=== PATIENT | female | born 1930 | race African-American/Black ===

== ENCOUNTER → 2017-08-09 | Outpatient (CLI) | payer MEDICARE, BC ==
[~2017-08-09] MED LIST: ASPIRIN 32325 MG/TA1 PO; ASPIRIN E.C. 8181 MG PO; ATACAND32 MG PO; CALCIUM600 M2 PO; COMBIRESP IH; COZAAR100 MG PO; FOSAMAX10 MG PO; NORCO 325 MG-51 TAB PO; PLENDIL10 MG PO; PREDNISONE20 MG PO; PROAIR HFA0.09 MG/AC IH; SINEMET 25/101 UDTAB PO; VITAMIN D1000 IU PO; VITAMIN E1000 U/CAP PO
== END ==
LOC: COL.VAS 09:53
DX: I08.8 Other rheumatic multiple valve diseases (principal)

== ENCOUNTER → 2018-03-03 | Outpatient (CLI) | payer MEDICARE, BC ==
[~2018-03-03] MED LIST changes: +CENTRUM SILVER1 CTB PO; +COZAAR 50MG50 MG/TAB PO; +FERROUS SU325 MG/TAB PO; +IMDUR 30MG30 MG/TAB PO; +K-TAB20 PO; +LASIX 20MG TABL20 MG PO; +NAMENDA 10MG TA10 MG PO; +PLAVIX 75MG TAB75 MG PO; +PREDNISONE10 MG PO; +PROLIA60 MG/ML SQ; +TOPROL XL 25MG25 MG PO; +ZITHROMAX500 M2 PO
[2018-03-03 15:03] LABS: HEMOGLOBIN 11.2 g/dl (12.5-16.0); MEAN CELL VOLUME 97 fl (80.0-100.0); MEAN CORPUSCULAR HEMOGLOBIN 30 pg (27.0-31.0); MEAN CORPUSCULAR HGB CONC 31 g/dl (33.0-37.0); MEAN PLATELET VOLUME 9.5 fl (7.4-10.4); PLATELET COUNT 189 K/mm3 (130-400); RED BLOOD COUNT 3.69 M/mm3 (4.10-5.30); REDCELL DISTRIBUTION WIDTH-CV 12.3 % (11.5-14.5)
[2018-03-03 15:10] LABS: HEMATOCRIT 35.7 % (37.0-47.0)
[2018-03-03 15:11] LABS: CALCIUM 9.6 mg/dL (8.4-10.2); CREATININE, serum 0.66 mg/dL (0.52-1.25); POTASSIUM 3.7 mmol/L (3.4-5.0)
== END ==
LOC: COL.LAB 14:22
PROVIDERS: Physician Assistant
DX: E87.6 Hypokalemia (principal); K92.2 Gastrointestinal hemorrhage, unspecified; D64.9 Anemia, unspecified

== ENCOUNTER 2018-03-10 15:04 | Inpatient (IN) | payer MEDICARE, BC ==
[~2018-03-10] VITALS: Ht 157.5 cm; Wt 43.5 kg
[2018-03-10 15:48] LABS: BASO % 0.3 % (0.0-2.0); EOS # 0.1 (0.0-0.7); EOS % 1.3 % (0-4.0); GRAN # 4.7 (1.4-6.5); HEMOGLOBIN 10.4 g/dl (12.5-16.0); LYMPH # 0.6 (1.2-3.4); LYMPH % 10.2 % (20.0-51.0); MEAN CELL VOLUME 97 fl (80.0-100.0); MEAN CORPUSCULAR HEMOGLOBIN 30 pg (27.0-31.0); MEAN CORPUSCULAR HGB CONC 31 g/dl (33.0-37.0); MONO # 0.5 (0.1-0.6); PLATELET COUNT 214 K/mm3 (130-400); RED BLOOD COUNT 3.45 M/mm3 (4.10-5.30); REDCELL DISTRIBUTION WIDTH-CV 11.9 % (11.5-14.5)
[2018-03-10 15:52] LABS: HEMATOCRIT 33.4 % (37.0-47.0)
[2018-03-10 15:53] LABS: ALANINE AMINOTRANSFERASE 19 U/L (9-52); ALBUMIN 3.4 gm/dL (3.5-5.0); ALKALINE PHOSPHATASE 70 U/L (50-136); ANION GAP 8 mmol/L (7-16); AST,SGOT 21 U/L (15-37); BILIRUBIN,TOTAL 0.4 mg/dL (0.0-1.0); BLOOD UREA NITROGEN 11 mg/dL (7-17); CALCIUM 8.4 mg/dL (8.4-10.2); CARBON DIOXIDE 37 mmol/L (22-30); CHLORIDE 97 mmol/L (98-107); CREATININE, serum 0.52 mg/dL (0.52-1.25); GLUCOSE 114 mg/dL (74-106); LIPASE 44 U/L (23-300); POTASSIUM 3.9 mmol/L (3.4-5.0); SODIUM 142 mmol/L (137-145); TOTAL PROTEIN 7.6 gm/dL (6.4-8.2)
[2018-03-10 16:11] LABS: TROPONIN-I < 0.012 ng/mL (0.000-0.034)
[2018-03-10 19:55] VITALS: BP 193/86; PULSE 71; TEMP 97.8
[2018-03-10 23:34] VITALS: BP 115/58; PULSE 72; TEMP 98.2
[2018-03-11 04:19] VITALS: BP 139/67; PULSE 70; TEMP 98.4
[2018-03-11 06:53] LABS: INR 1.2 (0.8-3.0); PROTHROMBIN TIME 13.6 SECONDS (9.7-12.8)
[2018-03-11 06:55] LABS: HEMATOCRIT 51.9 % (37.0-47.0); MEAN CELL VOLUME 98 fl (80.0-100.0); MEAN CORPUSCULAR HGB CONC 31 g/dl (33.0-37.0); MEAN PLATELET VOLUME 9.8 fl (7.4-10.4); REDCELL DISTRIBUTION WIDTH-CV 11.9 % (11.5-14.5)
[2018-03-11 06:57] LABS: HEMOGLOBIN 15.9 g/dl (12.5-16.0); MEAN CORPUSCULAR HEMOGLOBIN 30 pg (27.0-31.0); PLATELET COUNT 114 K/mm3 (130-400)
[2018-03-11 07:12] VITALS: BP 115/70; PULSE 64; TEMP 98.3
[2018-03-11 07:14] LABS: CALCIUM 7.9 mg/dL (8.4-10.2); CREATININE, serum 0.49 mg/dL (0.52-1.25); MAGNESIUM 1.8 mg/dL (1.6-2.3); POTASSIUM 3.6 mmol/L (3.4-5.0)
[2018-03-11 07:17] VITALS: BP 130/74; PULSE 73; TEMP 98.1
[2018-03-11 07:42] LABS: BAND 4 % (0-10); BASOPHIL 1 % (0-2); EOSINOPHIL 2 % (0-4); LYMPHOCYTE 11 % (20.0-51.0); NEUTROPHILS 73 % (42.0-75.2); PLATELET ESTIMATE DECREASED (NORMAL)
[2018-03-11 12:09] VITALS: BP 160/75; PULSE 89; TEMP 98.3
[2018-03-11 15:44] VITALS: BP 132/74; PULSE 83; TEMP 98.6
[2018-03-11 19:00] VITALS: BP 157/75; PULSE 90; TEMP 98.5
[2018-03-12 00:10] VITALS: BP 144/76; PULSE 90; TEMP 98.2
[2018-03-12 05:27] VITALS: BP 158/79; PULSE 80; TEMP 98.4
[2018-03-12 07:44] VITALS: BP 131/71; PULSE 88; TEMP 98.2
[2018-03-12 11:05] VITALS: BP 96/60; PULSE 87; TEMP 98.4
[2018-03-12 15:14] VITALS: BP 125/66; PULSE 97; TEMP 98.3
[2018-03-12 20:30] VITALS: BP 111/64; PULSE 96; TEMP 98.4
[2018-03-13] VITALS (18 sets, daily range): BP systolic 78–174; BP diastolic 51–100; PULSE 72–100; TEMP 98–98.3
[2018-03-13 06:24] LABS: INR 1.2 (0.8-3.0); PROTHROMBIN TIME 13.4 SECONDS (9.7-12.8)
[2018-03-13 06:38] LABS: CALCIUM 8.7 mg/dL (8.4-10.2); CREATININE, serum 0.5 mg/dL (0.52-1.25); MAGNESIUM 1.8 mg/dL (1.6-2.3); POTASSIUM 4.3 mmol/L (3.4-5.0)
[2018-03-13 06:41] LABS: MEAN CELL VOLUME 99 fl (80.0-100.0); MEAN CORPUSCULAR HGB CONC 31 g/dl (33.0-37.0); MEAN PLATELET VOLUME 10.4 fl (7.4-10.4); PLATELET COUNT 188 K/mm3 (130-400); RED BLOOD COUNT 2.98 M/mm3 (4.10-5.30); REDCELL DISTRIBUTION WIDTH-CV 12.1 % (11.5-14.5)
[2018-03-13 06:48] LABS: HEMATOCRIT 29.6 % (37.0-47.0); HEMOGLOBIN 9.2 g/dl (12.5-16.0); MEAN CORPUSCULAR HEMOGLOBIN 31 pg (27.0-31.0)
[2018-03-13 08:04] LABS: BAND 5 % (0-10); EOSINOPHIL 5 % (0-4); LYMPHOCYTE 10 % (20.0-51.0); NEUTROPHILS 76 % (42.0-75.2); PLATELET ESTIMATE NORMAL (NORMAL)
[2018-03-14 00:59] VITALS: BP 92/51; PULSE 92; TEMP 98.2
[2018-03-14 04:40] VITALS: BP 101/60; PULSE 81; TEMP 98.9
[2018-03-14 08:08] LABS: BASO % 0.5 % (0.0-2.0); EOS # 0.2 (0.0-0.7); EOS % 3.1 % (0-4.0); GRAN # 4.6 (1.4-6.5); GRAN % 74.8 % (42.2-75.2); HEMOGLOBIN 10.1 g/dl (12.5-16.0); LYMPH # 0.8 (1.2-3.4); LYMPH % 12.1 % (20.0-51.0); MEAN CELL VOLUME 100 fl (80.0-100.0); MEAN CORPUSCULAR HEMOGLOBIN 31 pg (27.0-31.0); MEAN CORPUSCULAR HGB CONC 31 g/dl (33.0-37.0); MEAN PLATELET VOLUME 9.9 fl (7.4-10.4); MONO # 0.6 (0.1-0.6); MONO % 9.2 % (1.7-9.3); PLATELET COUNT 187 K/mm3 (130-400)
[2018-03-14 08:10] VITALS: BP 118/73; PULSE 98; TEMP 98.2
[2018-03-14 08:18] LABS: CREATININE, serum 0.65 mg/dL (0.52-1.25); POTASSIUM 4.1 mmol/L (3.4-5.0)
[2018-03-14] MEDS ORDERED: COZAAR 25MG25 MG/TAB PO (10:48)
[2018-03-14] MEDS ORDERED: ULTRAM 50MG TAB50 MG PO (10:50)
[2018-03-14 11:38] VITALS: BP 107/63; PULSE 93; TEMP 97.9
== END 2018-03-14 15:45 | disposition home or self-care (01) | DRG 181 ==
LOC: COL.ER 15:04 → MEDICAL 17:49
PROVIDERS: Emergency Medicine; Internal Medicine; Internal Medicine Pulmonary Disease; Physician Assistant
PROC: 0BBC3ZX Excision of Right Upper Lung Lobe, Percutaneous Approach, Diagnostic (ICD-10-PCS; principal; 2018-03-13)
DX: C34.11 Malignant neoplasm of upper lobe, right bronchus or lung (principal); J96.12 Chronic respiratory failure with hypercapnia; E46 Unspecified protein-calorie malnutrition; D64.9 Anemia, unspecified; J44.9 Chronic obstructive pulmonary disease, unspecified; G20 Parkinson's disease; I11.0 Hypertensive heart disease with heart failure; I50.9 Heart failure, unspecified
CPT/HCPCS: OP; 99223-AI; 99232-AI; 99233-AI; 99239; J1956; J2270; J7030; Q9967